=== PATIENT | female | born 1935 | race Two or more races ===

== ENCOUNTER 2024-06-25 10:18 | Emergency (ER) | payer MEDICARE, MEDICAID, SELFPAY ==
[2024-06-25] VITALS (7 sets, daily range): BP systolic 120–150; BP diastolic 66–81; PULSE 100–118; RESP 19–25; TEMP 36.8–37.3; O2SAT 92–96
--- NOTE | 2024-06-25 11:11 | PC.NURSE ---
PATIENT AWAKE, DOES NOT FOLLOW DIRECTION. ATTEMPTED TO COMMUNICATE WITH HAND GESTURES. FACIAL EXPRESSION, GRIMACING AND TRYING TO GET ATTENTION BY OPENING MOUTH AND TRYING TO GRUNT. RT HAND CONTRACTURE NOTED. ABLE TO MOVE UPPER EXTREMITES AND LOWER EXTREMITES WITH DRAWS FROM PLANTER STROKING
--- NOTE | 2024-06-25 11:16 | PC.NURSE ---
02 RA 92%, 02 VIA OXYMASK AT 4L APPLIED
--- NOTE | 2024-06-25 11:22 | XR_ITS ---
Examination: AP chest single view Technique: AP portable upright chest single view Exam date and time: June 25, 2024 1133 hrs. Comparison November 01, 2021 Indications: Shortness of breath and respiratory crackles today. Findings: No significant cardiac enlargement Accentuation bronchovascular markings with early pneumonia at the left base Tracheostomy tube tip 5.5 cm above savi Impression: Bronchitis pattern Early pneumonia left base
--- NOTE | 2024-06-25 11:23 | EKG_ITS ---
[facility] Test Date: 2024-06-25 Pat Name: CHELA VARGAS Department: Room: - Gender: Female Stereo Operator: : [id number] Requested By: Calvin Pena Order Number: [id number] Reading MD: Calvin Pena Measurements Intervals [place] Rate: 113 P: 53 SD: 166 QRS: 39 QRSD: 78 T: 67 QT: 318 QTc: 437 Interpretive Statements SINUS TACHYCARDIA POSSIBLE LEFT ATRIAL ENLARGEMENT [-0.1mV P WAVE IN V1/V2] ABNORMAL RHYTHM ECG No previous ECG available for comparison /store/S0/[id number]/[id number]
--- NOTE | 2024-06-25 11:24 | EDNOTE_ITS ---
<Statement entered by Melisa Garnica MD - 06/26/24 11:46> As co-signing physician, I was present and available for consult prn. I concur with the plan and care as documented by the midlevel provider. ED General RME/HPI General Chief complaint: Shortness of Breath/Dyspnea Stated complaint: SOB Time Seen by Provider: 06/25/24 11:14 Arrival date/time: 06/25/24 10:18 CC: Desaturation shortness of breath HPI patient presents from [facility] by the [place] via EMS who reported low oxygen saturations per report this started approximately 8 AM this morning. Reported flu is negative. Patient is essentially nonverbal not on any blood thinners. DNR comfort care only executed in 2016. Related Data Home Medications ?Medication ?Instructions ?Recorded ?Confirmed atorvastatin 20 mg tablet (Lipitor) 20 mg PO QDAY ##0 12/03/15 11/01/21 quetiapine 25 mg tablet (Seroquel) 25 mg PO HS #0 tabs 12/03/15 11/01/21 divalproex 125 mg capsule,delayed 125 mg PO BID 05/14/21 11/01/21 release sprinkle diphenhydramine HCl 25 mg capsule 25 mg feeding tube Q12H PRN Itching 11/01/21 11/01/21 (Benadryl) guaifenesin 250 mg/5 mL oral 400 mg PO Q4H PRN Cough 11/01/21 11/01/21 solution insulin NPH isoph U-100 human 100 10 unit subcut DAILY 11/01/21 11/01/21 unit/mL subcutaneous suspension (Humulin N NPH U-100 Insulin (isophane susp)) insulin NPH isoph U-100 human 100 16 unit subcut HS 11/01/21 11/01/21 unit/mL subcutaneous suspension (Humulin N NPH U-100 Insulin (isophane susp)) ipratropium 0.5 mg-albuterol 3 mg 3 ml inhalation Q4H PRN Shortness 11/01/21 11/01/21 (2.5 mg base)/3 mL nebulization Of Breath soln loperamide 2 mg capsule 2 mg PO Q6H PRN Loose Stool 11/01/21 11/01/21 Previous Rx's ?Medication ?Instructions ?Recorded amoxicillin 250 mg-potassium 10 ml PO TID #150 mL 11/01/21 clavulanate 62.5 mg/5 mL oral suspension (Augmentin) amoxicillin 875 mg-potassium 1 tab PO BID #14 tabs 06/25/24 clavulanate 125 mg tablet Allergies Allergy/AdvReac Type Severity Reaction Status Date / Time diazepam Allergy Unknown Verified 01/20/17 21:23 Review of Systems Review of Systems ROS Unobtainable: unobtainable due to mental status Past Medical History Past Medical History NEUROLOGIC: Positive Neurological Disorders, Cerebrovascular Accident, Dementia and Parkinson's Disease CARDIAC: Negative Congestive Heart Failure RESPIRATORY: Positive Pneumonia (fungal); Negative Chronic Obstructive Pulmonary Disease (COPD) GENITOURINARY: Negative Renal Disease ENDOCRINE: Positive Diabetes Mellitus Type 2; Negative Diabetes Mellitus Type 1 PSYCHO/SOCIAL: Positive Bipolar Disorder and Depression Surgical History SURGICAL: Positive Tracheostomy Social History SMOKING STATUS: Never smoker ED Exam Narrative Physical exam: [General: Obese not in cot no acute distress at 1216 rectal temp was 99.9. Head normocephalic HEENT: Within acceptable limits Neck is supple trach site clean and intact no surrounding erythema or edema Chest equal chest rise nontender to palpation Respiratory: Tachypnea, basilar expiratory crackles. CV: Rate rhythm is regular no murmurs rubs or clicks Abdomen is soft nontender no masses positive bowel sounds all 4 quadrants Back: No CVA tenderness no spinous process tenderness from cervical spine thoracic and lumbar spine Skin: Intact no petechiae rash induration ulceration or crepitus Extremities: Moving all extremity against resistance cap refill less than 2 seconds neurosensory intact. No lower extremity edema Neuro: Awake alert, baseline, Course Quality Measures none Orders Category Date Time Status EKG (ED ONLY) *Do not use* NOW Care 06/25/24 11:23 Completed EKG (ED Only) Stat Exams 06/25/24 11:23 Draft XR chest 1V Stat Exams 06/25/24 11:22 Completed B-Type Natriuretic Peptide Stat Lab 06/25/24 11:44 Completed CBC Stat Lab 06/25/24 11:44 Completed CMP [Comprehensive Metabolic Panel] Stat Lab 06/25/24 11:44 Completed Drug Screen,Urine Stat Lab 06/25/24 14:45 Completed LDH (Lactate Dehydrogenase) Stat Lab 06/25/24 11:44 Completed Magnesium Stat Lab 06/25/24 11:44 Completed Partial Thromboplastin Time Stat Lab 06/25/24 11:44 Completed Prothrombin Time with INR Stat Lab 06/25/24 11:44 Completed Troponin I Stat Lab 06/25/24 11:44 Completed Urinalysis Stat Lab 06/25/24 14:45 Completed Piper/Tazo 3.375 gm [Zosyn] Med 06/25/24 13:23 Discontinued 3.375 gm in 50 ml IV X1 Sodium Chloride 0.9% 1000 ml [Ns] 1,000 ml Med 06/25/24 14:07 Discontinued IV 999 mls/hr Sodium Chloride 0.9% 1000 ml [Ns] 1,000 ml Med 06/25/24 14:11 Discontinued IV 999 mls/hr Airway suctioning ONCE RT 06/25/24 11:23 Completed Vital Signs Vital signs: Vital Signs Temperature 98.2 F 06/25/24 10:37 Pulse Rate 106 H 06/25/24 10:37 Respiratory Rate 19 06/25/24 10:37 Blood Pressure 120/72 06/25/24 10:37 Pulse Oximetry (%) 92 L 06/25/24 10:37 Oxygen Delivery Method Room Air 06/25/24 10:37 [facility] Patient data External records reviewed:: [facility] previous records and EMS form Clinical information provided by:: patient and EMS Social determinants that could affect healthcare access:: none Patient has the following chronic illnesses:: Acute respiratory failure hypercholesterolemia type 2 diabetes schizoaffective disorder depressive disorder parkinsonian disease dysphagia recurrent urinary tract infections. How is presenting disease/condition affected by chronic disease/condition?: u neffected by Evaluation data The following diagnostics were reviewed and interpreted by me:: lab results Lab and/or radiology exams considered but not ordered:: CBC shows no acute leukocytosis anemia thrombocytopenia CMP shows no significant electrolyte imbalances renal impairment transaminitis or T. bili elevation X-rays interpreted by me read by radiology shows a mild left base pneumonia EKG performed at 1350 shows a ventricular 113. #166 QRS of 78 QTc of 385 the normal second area. Interpretation Summary: Review of the microbiology showed sputum culture from the last admission shows Sandrita organism growth. At this time based on culture and sensitivity we will start the patient on Zosyn here. Medications Medications considered but not ordered:: None Medication administrations:: Medication Administration History Discontinued Medications Piperacillin/Tazobactam/Dextrose (Zosyn) 3.375 gm in 50 mls @ 100 mls/hr IV X1 ONE Stop: 06/25/24 13:52 Last Infusion: 06/25/24 15:04 Dose: Infused Documented By: Admin: 06/25/24 14:06 Dose: 100 mls/hr Documented By: TIGRE Sodium Chloride (Ns) 1,000 mls @ 999 mls/hr IV .Q1H1M ONE Stop: 06/25/24 15:07 Last Infusion: 06/25/24 16:30 Dose: Infused Documented By: Admin: 06/25/24 14:10 Dose: 999 mls/hr Documented By: TIGRE Sodium Chloride (Ns) 1,000 mls @ 999 mls/hr IV .Q1H1M ONE Stop: 06/25/24 15:11 Last Admin: 06/25/24 16:30 Dose: 999 mls/hr Documented By: TIGRE None Consultations Consultation(s) initiated? (list below): No Diagnosis Differential Diagnosis ED Complaint MDM: Pneumonia UTI CHF Most likely diagnosis given after review of the tests above:: Pneumonia UTI Admission Indicated Admission indicated?: not indicated Explain why admission is indicated or not indicated:: Stable for outpatient follow-up Admission Request Was there a request for admission?: No Disposition Plan Disposition Plan: Discharge Discharge Attestation Discharge Attestation: The patient and all family members were given an opportunity to ask questions and understood the discharge instructions. Discharge instructions specifically effects, indications for sooner follow up or return to the emergency department, and the expected course of current diagnosis. Patient condition: Stable Medical Decision Making Differential Diagnosis Differential Diagnosis: Pneumonia UTI CHF Lab Data 06/25/24 11:44 06/25/24 11:44 Labs: Lab Results 06/25/24 06/25/24 Range/Units 11:44 14:45 WBC 10.3 (3.6-11.0) Thou/mm3 RBC 4.67 (4.00-5.20) Miln/mm3 Hgb 15.0 (12.0-16.0) g/dL Hct 43.3 (36.0-46.0) % MCV 93 (80-100) fL MCH 32.1 (25.0-35.0) pg MCHC 34.6 (31.0-37.0) g/dl RDW Std Deviation 43.1 (36.4-46.3) fL Plt Count 181 (140-440) Thou/mm3 Neut % (Auto) 74 (37-80) % Lymph % (Auto) 15 (10-50) % [place] % (Auto) 11 (0-12) % Eos % (Auto) 1 (0-10) % Baso % (Auto) 0 (0-2.5) % Neut # (Auto) 7.6 (1.8-7.7) Thou/mm3 Lymph # (Auto) 1.5 (1.0-4.8) Thou/mm3 [place] # (Auto) 1.1 H (0.0-0.8) Thou/mm3 Eos # (Auto) 0.1 (0.0-0.5) Thou/mm3 Baso # (Auto) 0.0 (0.0-0.2) Thou/mm3 Immature Gran # (Auto) 0.03 H (0.00-0.00) Thou/mm3 Absolute Nucleated RBC 0.00 (0.00-0.00) Thou/mm3 Immature Gran % 0 (0-0) % Nucleated RBC % 0 (0) /100 WBC PT 11.7 (9.0-12.2) Seconds INR 1.1 (0.9-1.3) APTT 27.9 (22.0-36.0) Seconds Sodium 132 L (136-145) mMol/L Potassium 4.1 (3.4-5.1) mMol/L Chloride 99 (98-107) mMol/L Carbon Dioxide 24.6 (20.0-31.0) mMol/L Anion Gap 8 (7-16) BUN 19 (9-23) mg/dL Creatinine 0.6 (0.6-1.3) mg/dL Estim Creat Clear Calc Not Performed. eGFR > 60 (60 - ) See Note BUN/Creatinine Ratio 32 H (12-20) Ratio Glucose 194 H (74-106) mg/dL Calculated Osmolality 271 L (275-295) Calcium 9.2 (8.3-10.6) mg/dL Corrected Calcium 9.2 (8.5-10.1) mg/dL Magnesium 2.0 (1.6-2.6) mg/dL Total Bilirubin 0.5 (0.3-1.2) mg/dL AST 30 (0-34) U/L ALT 13 (10-49) U/L Alkaline Phosphatase 158 H (46-116) U/L Lactate Dehydrogenase 184 (120-246) U/L Troponin I < 0.020 (0.0-0.045) ng/mL B-Natriuretic Peptide 81 (0-100) pg/mL Total Protein 7.3 (5.7-8.2) gm/dL Albumin 4.0 (3.4-4.8) gm/dL Globulin 3.3 (2.3-3.5) gm/dL Albumin/Globulin Ratio 1.2 (1.2-2.2) Ur Collection Type Clean Catch Urine Color Yellow (Lt Yel-Yel) Urine Clarity Hazy (Clear/Hazy) Urine pH 7.5 H (5.0-7.0) Ur Specific [place] 1.028 (1.001-1.035) Urine Protein 2+ A (Neg - Trace) Urine Glucose (UA) Negative (Negative) Urine Ketones Negative (Negative) Urine Blood 2+ A (Negative) Urine Nitrite Negative (Negative) Urine Bilirubin Negative (Negative) Urine Urobilinogen (Auto) Negative (0.0-1.0) mg/dL Ur Leukocyte Esterase Positive (Negative) Urine RBC 304 H (0-3) /hpf Urine WBC 204 H (0-5) /hpf Ur Squamous Epith Cells 4 (0-5) /hpf Urine Bacteria 4+ A (None) Urine Opiates Screen Negative (Negative) Urine Fentanyl Screen Negative (Negative) Ur Barbiturates Screen Negative (Negative) U Amphetamin/Meth Scrn Negative (Negative) U Benzodiazepines Scrn Negative (Negative) U Cocaine Metab Screen Negative (Negative) U Marijuana (THC) Screen Negative (Negative) Discharge Plan Plan Patient Disposition: HOME (Self Care) Patient condition on transfer: Stable Prescriptions/Referrals Prescriptions/Med Rec: New amoxicillin-pot clavulanate 875-125 mg tablet 1 tab PO BID Qty: 14 0RF No Action quetiapine [Seroquel] 25 MG tablet 25 mg PO HS Qty: 0 atorvastatin [Lipitor] 20 MG tablet 20 mg PO QDAY Qty: 0 divalproex 125 mg capsule, delayed rel sprinkle 125 mg PO BID guaifenesin 250 mg/5 mL Solution 400 mg PO Q4H PRN (Reason: Cough) ipratropium-albuterol 0.5 mg-3 mg(2.5 mg base)/3 mL Solution For Nebulization 3 ml INHALATION Q4H PRN (Reason: Shortness Of Breath) loperamide 2 mg Capsule 2 mg PO Q6H PRN (Reason: Loose Stool) diphenhydramine HCl [Benadryl] 25 mg Capsule 25 mg feeding tube Q12H PRN (Reason: Itching) Humulin N NPH U-100 Insulin 100 unit/mL Suspension 16 unit SUBCUT HS Humulin N NPH U-100 Insulin 100 unit/mL Suspension 10 unit SUBCUT DAILY amoxicillin-pot clavulanate [Augmentin] 250-62.5 mg/5 mL suspension for reconstitution 10 ml PO TID Qty: 150 0RF Referrals: Shyann Kurtz MD [Primary Care Provider] - In 1 week Problem List Clinical Impression: Pneumonia, UTI (urinary tract infection) Patient/Caregiver Discharge Instructions Education Materials: Understanding Urinary Tract ..., ED Pneumonia (Adult) Additional Instructions: Give the patient the medicines as prescribed. Print Language: Faroese Stand Alone Forms: Tory Award Info., Work/School Release, Patient Portal Info Letter PA/FLUORESCENT LIGHTING MODEL MAKER Supervising Physician PA/[employer] MODEL MAKER Supervising Physician: Calvin Pacheco ENP
[2024-06-25 11:50] LABS: Basophils % (Auto) 0 % (0-2.5); Eosinophils # (Auto) 0.1 Thou/mm3 (0.0-0.5); Eosinophils % (Auto) 1 % (0-10); Hematocrit 43.3 % (36.0-46.0); Immature Granulocytes % (Auto) 0 % (0-0); Immature Granulocytes Auto 0.03 Thou/mm3 (0.00-0.00); Lymphocytes # (Auto) 1.5 Thou/mm3 (1.0-4.8); Lymphocytes % (Auto) 15 % (10-50); Mean Corpuscular HGB Conc 34.6 g/dl (31.0-37.0); Mean Corpuscular Hemoglobin 32.1 pg (25.0-35.0); Mean Corpuscular Volume 93 fL (80-100); Monocytes # (Auto) 1.1 Thou/mm3 (0.0-0.8); Monocytes % (Auto) 11 % (0-12); Neutrophils # (Auto) 7.6 Thou/mm3 (1.8-7.7); Neutrophils % (Auto) 74 % (37-80); Nucleated Red Blood Cell % 0 /100 WBC (0); Platelet Count 181 Thou/mm3 (140-440); RDW Standard Deviation 43.1 fL (36.4-46.3); Red Blood Count 4.67 Miln/mm3 (4.00-5.20); White Blood Count 10.3 Thou/mm3 (3.6-11.0)
[2024-06-25 12:04] LABS: INR 1.1 (0.9-1.3); Partial Thromboplastin Time 27.9 Seconds (22.0-36.0); Prothrombin Time 11.7 Seconds (9.0-12.2)
[2024-06-25 12:10] LABS: Alanine Aminotransferase 13 U/L (10-49); Albumin/Globulin Ratio 1.2 (1.2-2.2); Alkaline Phosphatase 158 U/L (46-116); Anion Gap 8 (7-16); Aspartate Amino Transferase 30 U/L (0-34); BUN/Creatinine Ratio 32 Ratio (12-20); Bilirubin,Total 0.5 mg/dL (0.3-1.2); Blood Urea Nitrogen 19 mg/dL (9-23); Calcium 9.2 mg/dL (8.3-10.6); Calcium (Corrected) 9.2 mg/dL (8.5-10.1); Carbon Dioxide 24.6 mMol/L (20.0-31.0); Chloride 99 mMol/L (98-107); Creatinine (Component) 0.6 mg/dL (0.6-1.3); Globulin 3.3 gm/dL (2.3-3.5); Glucose 194 mg/dL (74-106); LDH (Lactate Dehydrogenase) 184 U/L (120-246); Osmolality,Calculated 271 (275-295); Potassium 4.1 mMol/L (3.4-5.1); Sodium 132 mMol/L (136-145); Total Protein 7.3 gm/dL (5.7-8.2); Troponin I < 0.020 ng/mL (0.0-0.045); eGFR > 60 See Note
[2024-06-25 12:14] LABS: B-Type Natriuretic Peptide 81 pg/mL (0-100)
[2024-06-25] MEDS: PIPER/TAZO 3.375 GM 3.375 GM/50 ML BAG IV (14:06)
[2024-06-25] MEDS: SODIUM CHLORIDE 0.9% 1000 ML 1,000 ML 999 ML IV ×2 (14:10→16:30)
[2024-06-25 15:37] LABS: Collection Type, Urine Clean Catch
[2024-06-25 15:44] LABS: Bacteria,Urine 4+; Bilirubin,Urine Negative (Negative); Blood,Urine 2+ (Negative); Color,Urine Yellow (Lt Yel-Yel); Glucose, Urine Negative (Negative); Ketones,Urine Negative (Negative); Leukocyte Esterase,Urine Positive (Negative); Nitrite,Urine Negative (Negative); PH,Urine 7.5 (5.0-7.0); Protein,Urine 2+ (Neg - Trace); RBC,Urine 304 /hpf (0-3); Specific Gravity,Urine 1.028 (1.001-1.035); Squamous Epithelial Cell,Urine 4 /hpf (0-5); Urobilinogen,Urine Negative mg/dL (0.0-1.0); WBC,Urine 204 /hpf (0-5)
[2024-06-25 15:58] LABS: Amphetamine/Methamp Scrn,U Negative (Negative); Barbiturate Screen,Urine Negative (Negative); Benzodiazepines Screen,Urine Negative (Negative); Benzoylecgonine Screen, Ur Negative (Negative); Fentanyl Screen,Urine Negative (Negative); Opiate Screen,Urine Negative (Negative); THC Screen,Urine Negative (Negative)
[2024-06-25 16:10] LABS: Clarity,Urine Hazy (Clear/Hazy)
--- NOTE | 2024-06-25 17:31 | PC.NURSE ---
1600 PATIENTS RESPIRATORY EFFORTS ARE INTERMITTENTLY, RAPID WITH AUDIBLE TIGHTNESS AND ABNORMAL RESP SOUNDS.
--- NOTE | 2024-06-25 17:35 | PC.CC ---
ASW engaged to arrange transport for pt back to [facility] at [facility]. PCS and face sheet completed and uploaded to [employer]. 172-Call to [facility], transport ETA set for 1830.
== END 2024-06-25 18:34 | disposition home or self-care (01) ==
PROVIDERS: Registered Nurse General Practice; Emergency Provider Emergency Medicine; PCP Hospitalist
DX: J18.9 Pneumonia, unspecified organism (principal); N39.0 Urinary tract infection, site not specified; Z66 Do not resuscitate
CPT/HCPCS: 36415; 71045; 80053; 80307; 81001; 83615; 83735; 83880; 84484; 85025; 85610; 85730; 93005; 96361; 96365; 99284; J2543; J7030

== ENCOUNTER 2024-11-25 08:41 | Emergency (ER) | payer MEDICARE, MEDICAID, SELFPAY ==
[2024-11-25] VITALS (15 sets, daily range): BP systolic 96–141; BP diastolic 45–84; PULSE 98–109; RESP 4–37; TEMP 36.9–37; O2SAT 95–100; BMI 21.7
--- NOTE | 2024-11-25 09:13 | EDNOTE_ITS ---
ED General RME/HPI General Chief complaint: General Adult/Misc Complain Stated complaint: Possible Aspiration from PEG TUBE Time Seen by Provider: 11/25/24 08:59 Arrival date/time: 11/25/24 08:41 Limitations: language barrier (nonverbal, chronic) RME / HPI RME / HPI narrative: DR. MACHADO MAIN ED EVALUATION: 89 year old female with past medical history of diabetes, dementia, bipolar disorder, depression, G tube, tracheostomy, chronically nonverbal presents to the Emergency Department BIBA with complaint of possible aspiration. Per EMS, patient had a G tube leakage and then they said patient was coughing white formula and concerned for aspiration. No further history at this time. Related Data Home Medications ?Medication ?Instructions ?Recorded ?Confirmed atorvastatin 20 mg tablet (Lipitor) 20 mg PO QDAY ##0 12/03/15 11/01/21 quetiapine 25 mg tablet (Seroquel) 25 mg PO HS #0 tabs 12/03/15 11/01/21 divalproex 125 mg capsule,delayed 125 mg PO BID 11/01/21 release sprinkle diphenhydramine HCl 25 mg capsule 25 mg feeding tube Q 12H PRN Itching 11/01/21 11/01/21 (Benadryl) guaifenesin 250 mg/5 mL oral 400 mg PO Q4H PRN Cough 0 11/01/21 11/01/21 solution insulin NPH isoph U-100 human 100 10 unit subcut DAILY 11/01/21 11/01/21 unit/mL subcutaneous suspension (Humulin N NPH U-100 Insulin (isophane susp)) insulin NPH isoph U-100 human 100 16 unit subcut HS 11/01/21 unit/mL subcutaneous suspension (Humulin N NPH U-100 Insulin (isophane susp)) ipratropium 0.5 mg-albuterol 3 mg 3 ml inhalation Q4H PRN Shortness 11/01/21 11/01/21 (2.5 mg base)/3 mL nebulization Of Breath soln loperamide 2 mg capsule 2 mg PO Q6H PRN Loose Stool 11/01/21 11/01/21 Previous Rx's ?Medication ?Instructions ?Recorded amoxicillin 250 mg-potassium 10 ml PO TID #150 mL 08/24 clavulanate 62.5 mg/5 mL oral suspension (Augmentin) amoxicillin 875 mg-potassium 1 tab PO BID #14 tabs clavulanate 125 mg tablet ciprofloxacin HCl 500 mg tablet 500 mg PO Q12H UTI #20 tabs 11/25/24 Allergies Allergy/AdvReac Type Severity Reaction Status Date / Time diazepam Allergy Unknown Verified 01/20/17 21:23 Review of Systems Review of Systems Systems Reviewed: All systems reviewed, normal except as documented Past Medical History Past Medical History NEUROLOGIC: Positive Neurological Disorders, Cerebrovascular Accident, Dementia and Parkinson's Disease RESPIRATORY: Positive Pneumonia (fungal) ENDOCRINE: Positive Diabetes Mellitus Type 2 PSYCHO/SOCIAL: Positive Bipolar Disorder and Depression Surgical History SURGICAL: Positive Tracheostomy Social History SMOKING STATUS: Never smoker SUBSTANCE USE: does not use ALCOHOL: Never ED Exam General Limitations: Present language barrier (nonverbal, chronic) General appearance: Present alert and in no apparent distress Head Head exam: Present atraumatic, normocephalic and normal inspection Eye Eye exam: Present normal appearance, PERRL and EOMI ENT ENT exam: Present normal exam, normal oropharynx and mucous membranes moist Neck Neck exam: Present other (tracheostomy) Chest Chest inspection: Present normal inspection and symmetric chest wall rise Respiratory Respiratory exam: Present normal lung sounds bilaterally Cardiovascular Cardiovascular exam: Present regular rate, normal rhythm and normal heart sounds Abdominal Exam Abdominal exam: Present distention (slight), normal bowel sounds and other (G tube in left upper quadrant); Absent tenderness, rebound or mass Extremities Exam Extremities exam: Present normal inspection Back Exam Back exam: Present normal inspection Neurological Exam Neurological exam: Present alert, oriented X3 and other (Moves lower extremities minimally but moves upper extremities well.) Psychiatric Psychiatric exam: Present normal affect and normal mood Skin Skin exam: Present warm, dry, intact and normal color Course Quality Measures none Orders Category Date Time Status Baggage Security Checker NOW Care 11/25/24 09:28 Completed Continuous Pulse Oximetry NOW Care 11/25/24 09:28 Completed EKG (ED ONLY) *Do not use* NOW Care 11/25/24 09:28 Completed Insert IV NOW Care 11/25/24 09:28 Completed EKG (ED Only) Stat Exams 11/25/24 09:28 Draft XR chest 1V portable Stat Exams 11/25/24 09:28 Completed CBC Stat Lab 11/25/24 10:24 Completed Comprehensive Metabolic Panel Stat Lab 11/25/24 10:24 Completed Prothrombin Time with INR Stat Lab 11/25/24 10:24 Completed Albuterol/Ipratr Rt Silvia [Duoneb Rt Silvia] Med 11/25/24 09:28 Discontinued 3 ml INH X1 ONE Budesonide Rt [Pulmicort Rt Silvia] Med 11/25/24 09:28 Discontinued 0.5 mg INH X1 ONE Insulin Regular Med 11/25/24 12:37 Discontinued 5 unit SC X1 ONE cefTRIAXone [Rocephin] 2 gm Med 11/25/24 12:37 Discontinued SODIUM CHLORIDE 0.9% (Popper) [Ns 0.9% (P)] 50 ml IV QDAY Oxygen Delivery NOW RT 11/25/24 09:28 Completed Vital Signs Vital signs: Vital Signs Pulse Rate 103 H 11/25/24 09:04 Respiratory Rate 33 H 11/25/24 09:04 Blood Pressure 141/78 H 11/25/24 09:04 Pulse Oximetry (%) 96 11/25/24 09:04 Discharge Plan Plan Patient Disposition: HOME (Self Care) Prescriptions/Referrals Prescriptions/Med Rec: New ciprofloxacin HCl 500 mg tablet 500 mg PO Q12H MDD 2 Qty: 20 0RF No Action quetiapine [Seroquel] 25 MG tablet 25 mg PO HS Qty: 0 atorvastatin [Lipitor] 20 MG tablet 20 mg PO QDAY Qty: 0 divalproex 125 mg capsule, delayed rel sprinkle 125 mg PO BID guaifenesin 250 mg/5 mL Solution 400 mg PO Q4H PRN (Reason: Cough) ipratropium-albuterol 0.5 mg-3 mg(2.5 mg base)/3 mL Solution For Nebulization 3 ml INHALATION Q4H PRN (Reason: Shortness Of Breath) loperamide 2 mg Capsule 2 mg PO Q6H PRN (Reason: Loose Stool) diphenhydramine HCl [Benadryl] 25 mg Capsule 25 mg feeding tube Q12H PRN (Reason: Itching) Humulin N NPH U-100 Insulin 100 unit/mL Suspension 16 unit SUBCUT HS Humulin N NPH U-100 Insulin 100 unit/mL Suspension 10 unit SUBCUT DAILY amoxicillin-pot clavulanate [Augmentin] 250-62.5 mg/5 mL suspension for reconstitution 10 ml PO TID Qty: 150 0RF amoxicillin-pot clavulanate 875-125 mg tablet 1 tab PO BID Qty: 14 0RF Referrals: No Primary/Family,Physician [Primary Care Provider] - In 1 week Problem List Clinical Impression: Acute UTI Patient/Caregiver Discharge Instructions Education Materials: ED CYSTITIS Female Adult Print Language: Citizen Of [place] Stand Alone Forms: Tory Award Info., Patient Portal Info Letter [facility] Narrative [facility] hospital course: I, Kathy River am scribing for and in the presence of Dr. Machado. Clinical Information Provided by EMS Medical Records Reviewed EMS Meds/Rx Considered, not Ordered None Labs/Rad/Tests considered, not Ordered None Chronic Illness/Social Conditions Add or document further as needed: diabetes, dementia, bipolar disorder, depression, G tube, tracheostomy, chronically nonverbal EKG Interpretation EKG #1: Date/time of EK11/25/24 1359 hours EKG interpretation: sinus tachycardia, rate 106, possible left atrial enlargement, no STEMI, CT interval 160 ms, QRS duration 82 ms, QT/QTc 345/407, P-R-T axis 50, -8, and 59 Imaging Radiology reports / interpretation(s): Procedure(s): XR chest 1V portable Accession Number(s): [id number] cc: Jones Machado MD; Trent Mendoza MD; NO PRIMARY/FAMILY,PHYSICIAN~ Examination: AP chest single view Technique one AP portable supine chest single view Date and time: November 25, 2024 0941 hours Comparison June 25, 2024 INDICATIONS: Coughing today. FINDINGS: Significant pneumonia in the left lower lung zone Normal heart size Ectatic thoracic aorta Moderate vascular congestion. Tracheostomy tube tip 5.7 cm above Rufina IMPRESSION: Significant pneumonia in the left lower lung zone Suspicious for mild heart failure Dictated By: Trent Mendoza MD Medication Administration(s) Medication Administration History Discontinued Medications Albuterol/Ipratropium (Albuterol/Ipratropium (Duoneb) Rt Silvia 3 Ml Nebu) 3 ml INH X1 ONE Stop: 11/25/24 09:29 Last Admin: 11/25/24 10:40 Dose: 3 ml Documented By: MR Budesonide (Budesonide Rt 0.5 Mg/2 Ml Nebu) 0.5 mg INH X1 ONE Stop: 11/25/24 09:29 Last Admin: 11/25/24 10:41 Dose: 0.5 mg Documented By: Ceftriaxone Sodium 2 gm/ (Sodium Chloride) 50 mls @ 100 mls/hr IV QDAY SUZANNE Stop: 12/02/24 12:36 Last Infusion: 11/25/24 13:37 Dose: Infused Documented By: Admin: 11/25/24 13:00 Dose: 100 mls/hr Documented By: CG Insulin Human Regular (Insulin Hum Regular 1 Unit/0.01 Ml (Per Unit)) 5 unit SC X1 ONE Stop: 11/25/24 12:38 Last Admin: 11/25/24 13:01 Dose: 5 unit Documented By: CG Co-signed By: CANDY Diagnosis Differential diagnosis: aspiration, aspiration pnemonia, G tube leakage Most likely dx, and/or detailed dx discussion: Acute UTI Dispositon Disposition: Discharge Home
--- NOTE | 2024-11-25 09:28 | XR_ITS ---
Examination: AP chest single view Technique one AP portable supine chest single view Date and time: November 25, 2024 0941 hours Comparison June 25, 2024 INDICATIONS: Coughing today. FINDINGS: Significant pneumonia in the left lower lung zone Normal heart size Ectatic thoracic aorta Moderate vascular congestion. Tracheostomy tube tip 5.7 cm above Rufina IMPRESSION: Significant pneumonia in the left lower lung zone Suspicious for mild heart failure
--- NOTE | 2024-11-25 09:28 | EKG_ITS ---
[facility] Test Date: 2024-11-25 Pat Name: CHELA VARGAS Department: Room: - Gender: Female Nuclear Medicine Specialist: : [id number] Requested By: Jones Roy Order Number: [id number] Reading MD: Jones Roy Measurements Intervals [place] Rate: 106 P: 50 MN: 160 QRS: -8 QRSD: 82 T: 59 QT: 345 QTc: 460 Interpretive Statements SINUS TACHYCARDIA POSSIBLE LEFT ATRIAL ENLARGEMENT [-0.1mV P-WAVE IN V1/V2] MODERATE ST DEPRESSION [0.05+ mV ST DEPRESSION] Compared to ECG 06/25/2024 13:50:54 ST (T wave) deviation now present /store/S0/[id number]/[id number]
[2024-11-25] MEDS: ALBUTEROL/IPRATROPIUM (Duoneb) RT SOL 3 ML NEBU INH (10:40)
[2024-11-25] MEDS: BUDESONIDE RT 0.5 MG/2 ML NEBU INH (10:41)
[2024-11-25 10:44] LABS: Basophils % (Auto) 0 % (0-2.5); Eosinophils % (Auto) 0 % (0-10); Hematocrit 43.5 % (36.0-46.0); Hemoglobin 14.9 g/dL (12.0-16.0); Immature Granulocytes % (Auto) 0 % (0-0); Immature Granulocytes Auto 0.06 Thou/mm3 (0.00-0.00); Lymphocytes # (Auto) 0.9 Thou/mm3 (1.0-4.8); Lymphocytes % (Auto) 7 % (10-50); Mean Corpuscular HGB Conc 34.3 g/dl (31.0-37.0); Mean Corpuscular Hemoglobin 31.8 pg (25.0-35.0); Mean Corpuscular Volume 93 fL (80-100); Monocytes # (Auto) 0.5 Thou/mm3 (0.0-0.8); Monocytes % (Auto) 3 % (0-12); Neutrophils # (Auto) 12.1 Thou/mm3 (1.8-7.7); Neutrophils % (Auto) 89 % (37-80); Nucleated Red Blood Cell % 0 /100 WBC (0); Platelet Count 210 Thou/mm3 (140-440); RDW Standard Deviation 44.1 fL (36.4-46.3); Red Blood Count 4.69 Miln/mm3 (4.00-5.20); White Blood Count 13.6 Thou/mm3 (3.6-11.0)
[2024-11-25 11:03] LABS: Alanine Aminotransferase 16 U/L (10-49); Albumin, Serum 3.9 gm/dL (3.4-4.8); Albumin/Globulin Ratio 1.2 (1.2-2.2); Alkaline Phosphatase 150 U/L (46-116); Anion Gap 12 (7-16); Aspartate Amino Transferase 27 U/L (0-34); BUN/Creatinine Ratio 38 Ratio (12-20); Bilirubin,Total 0.4 mg/dL (0.3-1.2); Blood Urea Nitrogen 23 mg/dL (9-23); Calcium 9.6 mg/dL (8.3-10.6); Calcium (Corrected) 9.7 mg/dL (8.5-10.1); Carbon Dioxide 22.7 mMol/L (20.0-31.0); Chloride 102 mMol/L (98-107); Creatinine (Component) 0.6 mg/dL (0.6-1.3); Estimated Creatinine Clearance 53.6 mL/min (>60); Globulin 3.2 gm/dL (2.3-3.5); Glucose 302 mg/dL (74-106); Osmolality,Calculated 288 (275-295); Sodium 137 mMol/L (136-145); Total Protein 7.1 gm/dL (5.7-8.2); eGFR > 60 See Note
[2024-11-25 11:07] LABS: INR 1.1 (0.9-1.3)
[2024-11-25] MEDS: cefTRIAXone 2 GM in SODIUM CHLORIDE 0.9% (Popper) 50 ML IV (13:00)
[2024-11-25] MEDS: INSULIN HUM REGULAR 1 UNIT/0.01 ML (PER UNIT) 5 UNIT SC (13:01)
--- NOTE | 2024-11-25 13:45 | PC.CC ---
JORGE Jimenez arranged transportation for the pt to return to [facility]. ASW contacted [facility] at [phone] and EMS will p/u at [phone].
--- NOTE | 2024-11-25 13:57 | PC.NURSE ---
[employer]ING [employer] OPERATOR, MAYA PUMPING PLANT OPERATOR, AT BEDSIDE SPEAKING TO PRIMARY RN, VIRGINIA Hutchinson RN, FOR SBAR REPORT AT THIS TIME.
== END 2024-11-25 14:11 | disposition home or self-care (01) ==
PROVIDERS: Emergency Provider Family Medicine
DX: K94.23 Gastrostomy malfunction (principal); J18.9 Pneumonia, unspecified organism; R00.0 Tachycardia, unspecified
CPT/HCPCS: 36415; 71045; 80053; 85025; 85610; 93005; 94640; 96365; 96372; 99284; A9270; J0696; J1815; J7050